=== PATIENT | female | born 1980 | race Caucasian/White ===

== ENCOUNTER 2018-04-19 23:43 | Emergency (ER) | payer SELFPAY ==
[2018-04-20] MEDS ORDERED: Dexamethasone 10 MG/ML VIAL ONE (01:35)
--- NOTE | 2018-04-20 09:10 | RAD ---
2 VIEWS CHEST: Date: 04/20/18 COMPARISON: None. HISTORY: Difficulty breathing, starting this morning, with coughing and wheezing. IMPRESSION: Two views of the chest show normal sized cardiomediastinal silhouette. There is no evidence of consol idation, mass, or pleural effusion. The bones are unremarkable. IMPRESSION: No evidence of acute cardiopulmonary disease. POS: [facility]
== END 2018-04-20 01:40 | disposition home or self-care (01) ==
LOC: ERS 23:43
DX: J02.9 Acute pharyngitis, unspecified (principal); F41.9 Anxiety disorder, unspecified; F32.9 Major depressive disorder, single episode, unspecified
CPT/HCPCS: 71046; 87804; J1100

== ENCOUNTER 2020-02-28 14:53 | Outpatient (CLI) | payer OTHER ==
--- NOTE | 2020-02-28 15:32 | RAD ---
EXAM: 2 views of the right knee HISTORY: Right knee pain COMPARISON: None FINDINGS: No knee effusion is seen. There is no evidence of acute fracture or dislocation. No signifi cant degenerative changes are seen. IMPRESSION: No evidence of acute osseous abnormality.
== END 2020-02-28 14:54 | disposition home or self-care (01) ==
LOC: BICRAD 14:53
PROVIDERS: ATTEND Internal Medicine
DX: Z02.71 Encounter for disability determination (principal)

== ENCOUNTER 2022-10-27 15:54 | Emergency (ER) | payer OTHER ==
[2022-10-27 16:42] LABS: #Basophils 0.1 thou/uL (0.0-0.2); #Eosinphils 0.8 thou/uL (0.0-0.7); #Monocytes 0.6 thou/uL (0.11-0.59); #Neutrophils 3.6 thou/uL (1.40-6.50); %Basophils 1.6 % (0.0-1.0); %Eosinophils 11.6 % (0.0-10.0); %Lymphocytes 23.3 % (21.0-51.0); %Monocytes 8.7 % (0.0-10.0); %Neutrophils 54.1 % (42.0-75.0); Hemoglobin 12.8 g/dL (12.0-16.0); Mean Corpuscular HGB CONC 34.3 g/dL (32.0-36.0); Mean Corpuscular Hemoglobin 30.9 pg (27.0-31.0); Mean Corpuscular Volume 90.1 fl (78.0-98.0); Mean Platelet Volume 10.7 fL (7.4-10.4); Platelet Count 356 10x3/uL (130-400); RBC Distribution Width 12.6 % (11.5-14.5); Red Blood Cell (RBC) Count 4.14 mill/uL (4.20-5.40); White Blood Cell (WBC) Count 6.7 10x3/uL (4.8-10.8)
[2022-10-27 17:18] LABS: MONO NEGATIVE CONTROL ZONE White (Negative) (White); MONO POSITIVE CONTROL Pink Line (Positive) (PINK/RED); Mononucleosis NEGATIVE (NEGATIVE)
[2022-10-27] MEDS ORDERED: Lidocaine 1% MPF 2 ML VIAL ONE (17:35)
[2022-10-27] MEDS ORDERED: cefTRIAXone (ROCEPHIN) 1 GM VIAL ONE (17:35)
[2022-10-27] MEDS ORDERED: Dexamethasone 10 MG/ML VIAL ONE (17:35)
[2022-10-27 18:37] LABS: SARS-CoV-2 NAA Rapid Test Not Detected (NotDetected)
== END 2022-10-27 18:01 | disposition home or self-care (01) ==
LOC: ERS 15:54
DX: J02.9 Acute pharyngitis, unspecified (principal); Z20.822 Contact with and (suspected) exposure to COVID-19
CPT/HCPCS: 85025; 86308; 96372; 99284; U0002; 36415; J0696; J1100